=== PATIENT | female | born 1990 | race Native Hawaiian/Other Pacific Islander ===

== ENCOUNTER 2017-02-04 10:13 | Emergency (ER) | payer BC ==
[~2017-02-04] VITALS: Ht 162.6 cm; Wt 81.6 kg
== END 2017-02-04 13:00 | disposition home or self-care (01) ==
LOC: ED 10:13
DX: S93.402A Sprain of unspecified ligament of left ankle, initial encounter (principal); S93.401A Sprain of unspecified ligament of right ankle, initial encounter; S96.912A Strain of unspecified muscle and tendon at ankle and foot level, left foot, initial encounter; S96.911A Strain of unspecified muscle and tendon at ankle and foot level, right foot, initial encounter; S82.832A Other fracture of upper and lower end of left fibula, initial encounter for closed fracture; W10.9XXA Fall (on) (from) unspecified stairs and steps, initial encounter; Y92.098 Other place in other non-institutional residence as the place of occurrence of the external cause
CPT/HCPCS: 96372; 99283; J1885

== ENCOUNTER 2017-07-10 16:08 | Outpatient (CLI) | payer BC ==
[2017-07-10 16:29] LABS: PLATELET COUNT 352 K/uL (152-353)
== END 2017-07-10 19:00 ==
LOC: LABW 16:08
PROVIDERS: Plastic Surgery Plastic Surgery Within the Head and Neck
DX: Z01.812 Encounter for preprocedural laboratory examination (principal); Z01.818 Encounter for other preprocedural examination
CPT/HCPCS: 36415; 85027

== ENCOUNTER 2018-01-30 17:40 | Emergency (ER) | payer BC ==
[~2018-01-30] VITALS: Ht 162.6 cm; Wt 86.2 kg
[2018-01-30 19:47] VITALS: BP 115/64; TEMP 98
== END 2018-01-30 19:48 | disposition home or self-care (01) ==
LOC: ED 17:40
DX: S82.302A Unspecified fracture of lower end of left tibia, initial encounter for closed fracture (principal); S93.401A Sprain of unspecified ligament of right ankle, initial encounter; M25.571 Pain in right ankle and joints of right foot; W19.XXXA Unspecified fall, initial encounter
CPT/HCPCS: 99282

== ENCOUNTER 2022-09-21 11:04 | Outpatient (CLI) | payer BC | END 2022-09-21 19:12 | disposition home or self-care (01) | LOC: RAD 11:04 | PROVIDERS: ATTEND Nurse Practitioner Family | DX: M25.531 Pain in right wrist (principal) ==